=== PATIENT | female | born 1965 | race Caucasian/White ===

== ENCOUNTER 2016-08-03 09:59 | Day surgery (SDC) | payer BC ==
[2016-08-03] MEDS ORDERED: MIDAZOLAM HCL 2MG/2ML VIAL IV ONE (11:00)
[2016-08-03] MEDS ORDERED: PROPOFOL 10 MG/ML VIAL IV ONE (11:00)
[2016-08-03] MEDS ORDERED: LIDOCAINE 2% MDV (20MG/ML) 20ML VIAL IV ONE (11:00)
--- NOTE | 2016-08-09 10:20 | Operative Note ---
DATE OF SURGERY: 08/03/2016 SURGEON: Benito Rosales MD OPERATION: COLONOSCOPY. INDICATIONS: This is a 50-year-old female with average risk for colorectal cancer who presented for screening colonoscopy. POSTOPERATIVE DIAGNOSIS: Normal colon. ANESTHESIA: Sedation is per Anesthesia. Pulse oximetry was monitored throughout the procedure to maintain O2 saturation of 90% or greater. Supplemental oxygen was administered via nasal cannula. Cardiac and vital signs were monitored throughout the duration of the procedure, and they were stable. The procedure of colonoscopy and risks and alternatives of the procedure, including the risk of bleeding and perforation, among others, were explained to the patient who voiced understanding and agreed to have the procedure done. Physical examination was performed, and the patient was found stable for sedation. PROCEDURE: The patient was placed in the left lateral position. Sedation was initiated. A digital rectal exam was performed and showed some mild external hemorrhoids with no palpable rectal masses. An Olympus PCF-180AL colonoscope was then inserted into the rectum under direct visualization. It was advanced to the cecum without difficulty. The ileocecal valve and appendiceal orifice were identified and photographed. The colonic mucosa was carefully examined upon introduction of the colonoscope. There were no lesions noted. The colonoscope was then withdrawn while carefully examining the colonic mucosal surfaces. No lesions were noted. In the rectum, retroflexion was performed and grade 1 internal hemorrhoids were noted. The colonoscope was then withdrawn and the procedure was terminated. The patient tolerated the procedure well without any immediate complications. She remained with stable vital signs and was transferred to the recovery room. RECOMMENDATIONS: 1. The patient should be on a high-fiber diet. 2. The patient is to have a repeat colonoscopy for screening in 10 years. Thank you for allowing me to participate in the care of your patient. Benito Rosales MD CC: MANAV COSTELLO MD, [facility]
== END 2016-08-03 12:55 | disposition home or self-care (01) ==
LOC: HOP 09:59
PROVIDERS: ATTEND Internal Medicine Gastroenterology
DX: Z12.11 Encounter for screening for malignant neoplasm of colon (principal)
CPT/HCPCS: 81025

== ENCOUNTER 2019-02-11 14:47 | Observation (INO) | payer BC ==
[2019-02-11] MEDS ORDERED: DIAZEPAM 5 MG/1 ML TUBX IVP PRN ×2 (15:00→19:24)
[2019-02-11] MEDS ORDERED: 0.9 % SODIUM CHLORIDE 1,000 ML BAG IV ONE (15:01)
[2019-02-11] MEDS ORDERED: DIPHENHYDRAMINE HCL 50 MG/ML VIAL IVP ONE (15:01)
--- NOTE | 2019-02-11 15:05 | Emergency Department Record ---
History of Present Illness - General Chief Complaint: Dizziness Stated Complaint: DIZZINESS,VOMITING Time Seen by Provider: 02/11/19 14:50 Source: Patient Mode of Arrival: Ambulatory Limitations: No limitations - History of Present Illness Initial Comments: The patient is here due to the acute onset of dizziness and lightheadedness at home with nausea about an hour ago. She was just walking around doing housework when she developed the dizziness. She describes it as a feeling of motion along with lightheadness. There is no ORTIZ with the dizziness, or any confusion, neck pain, speech difficulties, or weakness. The patient has had a stroke in the past which manifested as an expressive aphasia but that did resolve. She was on Coumadin for some time but is off it now. The patient does have a hx of Vertigo but this is worse than in the past. The patient states she is feeling better at this time. Her dizziness is about 50% improved. MD Complaint: Dizziness, Lightheadedness Onset/Timin -: Hour(s) - Related Data Allergies Allergy/AdvReac Type Severity Reaction Status Date / Time codeine Allergy Intermediate VOMITING Verified 02/11/19 14:55 sulfamethoxazole Allergy Intermediate RASH Verified 02/11/19 14:55 [From Bactrim] trimethoprim [From Bactrim] Allergy Intermediate RASH Verified 02/11/19 14:55 Review of Systems Constitutional: Denies: Chills, Fever Eyes: Denies: Eye discharge ENT: Denies: Congestion Respiratory: Denies: Cough, Dyspnea Cardiovascular: Denies: Arrhythmia Endocrine: Denies: Fatigue Gastrointestinal: Reports: Nausea Genitourinary: Denies: Dysuria Musculoskeletal: Denies: Arthralgia Neurological: Denies: Confusion, Headache Past Medical History - SOCIAL HISTORY Smoking Status: Never smoker - RESPIRATORY Hx Respiratory Disorders: Yes Hx Sleep Apnea: Yes Hx of CPAP: No - CARDIOVASCULAR Hx Cardio Disorders: Yes Hx Hypertension: Yes Comment:: blood clot left carotid [id number] - NEURO Hx Neuro Disorders: Yes Hx CVA: Yes - GI Hx GI Disorders: No - Hx Genitourinary Disorders: No - ENDOCRINE Hx Endocrine Disorders: No - MUSCULOSKELETAL Hx Musculoskeletal Disorders: Yes Hx Arthritis: Yes - PSYCH Hx Psych Problems: Yes Hx Depression: Yes - HEMATOLOGY/ONCOLOGY Hx Hematology/Oncology Disorders: No Family Medical History *Cancer Comment: Paternal Great Grandmother-stomach cancer Hx Heart Disease: Father Physical Exam - General General Appearance: Alert, Oriented x3, Cooperative, No acute distress - Head Head exam: Atraumatic, Normocephalic, Normal inspection - Eye Eye exam: Normal appearance, PERRL, EOMI, Nystagmus (There is bilateral horizontal nystagmus increased to the L.) - ENT ENT exam: TM's normal bilaterally - Neck Neck exam: Normal inspection, Full ROM. negative: Lymphadenopathy, Meningismus, Tenderness - Respiratory Respiratory exam: Normal lung sounds bilaterally. negative: Respiratory distress - Cardiovascular Cardiovascular Exam: Regular rate, Normal rhythm, Normal heart sounds - GI/Abdominal GI/Abdominal exam: Soft, Normal bowel sounds. negative: Tenderness - Extremities Extremities exam: Normal inspection, Full ROM, Normal capillary refill. ne gative: Tenderness - Neurological Neurological exam: Alert, CN II-XII intact, Normal gait (but somewhat slow due to the dizziness.), Oriented X3, Reflexes normal, Other (Neg Drift and Rhomberg exams. Finger to nose exam normal.). negative: Abnormal gait, Altered, Motor sensory deficit - Psychiatric Psychiatric exam: negative: Anxious - Skin Skin exam: negative: Rash Course Vital Signs 02/11/19 14:54 Temperature 97.7 F Pulse Rate [ 91 H Pulse Ox Probe] Respiratory 20 Rate Blood Pressure 153/80 [Left Arm] Pulse Ox 96 - Reevaluation(s) Reevaluation #1: The patient is now back from CT. She did have worsening nausea with the movement to CT but after the Zofran is doing better. 02/11/19 15:37 Reevaluation #2: The patient is doing a lot better at this time. She is feeling 75% better with the dizziness resolving and denies any arm or leg numbness or weakness. Her speech is clear and she is having no visual changes or difficulty swallowing. 02/11/19 16:03 Reevaluation #3: The patient is doing better but is still having some significant Vertigo. She did try her own home Yung Maneuver to relieve the vertigo but it did not work. She is able to get up and walk but is still mildly unsteady due to the dizziness so I did recommend a short stay hospital admission which she agreed to. I then did discuss the case with Ofelia ([employer]CH[employer]IC[employer]) and she agrees with the plan for a short stay hospital admission and she accepts the patient for Dr. Juan. Ofelia also stated she would F/U on the Carotid doppler tests results. 02/11/19 16:44 Medical Decision Making - Data Complexity MDM Data: Labs Ordered and/or Reviewed, X-Ray Ordered and/or Reviewed, EKG Ordered and/or Reviewed - Lab Data Result diagrams: 02/11/19 15:10 02/11/19 15:10 - EKG Data -: EKG Interpreted by Me EKG: No Acute Changes, Normal EKG - Radiology Data Radiology results: Report reviewed (Head CT: Neg for acute changes, Old L fr ontal-parieatal CVA. ) Disposition Disposition: Admit Clinical Impression: Vertigo Disposition: Still a Patient at [facility] Decision to Admit: Admit from ER Decision to Admit Date: 02/11/19 Decision to Admit Time: 16:47 Accepting Physician: Yessica Time Discussed w/Accepting Physician: 16:47 Condition: (2) Stable Forms: Patient Portal Access Time of Disposition: 16:47 Quality - Quality Measures Quality Measures: N/A - Blood Pressure Screening View Details: Yes Does Patient Have Any of the Following: No Blood Pressure Classification: Pre-Hypertensive BP Reading Systolic Measurement: 153 Diastolic Measurement: 80 Screening for High Blood Pressure: < Pre-Hypertensive BP, F/U Documented > [G8950] Pre-Hypertensive Follow-up Interventions: Referral to alternative/primary care provider.
[2019-02-11] MEDS ORDERED: ONDANSETRON HCL IV 4 MG/2 ML VIAL IVP ONE ×2 (15:14→18:34)
[2019-02-11 15:32] LABS: BASO % 0.3 % (0-6); EOS % 1.8 % (0-6); GRAN % 61.8 % (47-80); HEMATOCRIT 38.1 % (35.0-47.0); HEMOGLOBIN 12.2 gm/dl (11.6-16.0); LYMPH % 30.4 % (16-45); MEAN CELL VOLUME 82.5 fl (81-97); MEAN CORPUSCULAR HEMOGLOBIN 26.4 pg (27-33); MEAN PLATELET VOLUME 9.3 fl (7.4-10.4); MONO % 5.7 % (0-9); PLATELET COUNT 407 K/uL (130-400); RED BLOOD COUNT 4.62 M/uL (3.80-5.40); RED CELL DISTRIBUTION WIDTH 13.9 % (11.5-14.5); WHITE BLOOD COUNT W/O DIFF 10.7 K/uL (4.2-12.2)
[2019-02-11 15:42] LABS: BLOOD UREA NITROGEN 19 mg/dL (6-20); CREATININE 0.5 mg/dL (0.5-0.9); EST GLOMERULAR FILTRATION RATE > 60 mL/min
[2019-02-11 15:43] LABS: TOTAL PROTEIN 7.2 g/dL (6.6-8.7)
[2019-02-11 15:45] LABS: GLUCOSE,RANDOM 107 mg/dL (74-109); PARTIAL THROMBOPLASTIN TIME 25.7 SECONDS (24.5-39.1)
[2019-02-11 15:47] LABS: ALT/SGPT 14 U/L (<33)
[2019-02-11 15:48] LABS: ALB/GLOB RATIO 1.6 (1.1-1.8); ALBUMIN 4.4 g/dL (4.0-5.0); ALKALINE PHOSPHATASE 79 U/L (35-104); AST/SGOT 14 U/L (10.0-35.0)
--- NOTE | 2019-02-11 18:40 | Emergency Department Record ---
History of Present Illness - General Chief Complaint: Dizziness Stated Complaint: DIZZINESS,VOMITING Time Seen by Provider: 02/11/19 14:50 Source: Patient Mode of Arrival: Ambulatory Limitations: No limitations - History of Present Illness Onset/Timin -: Hour(s) Timing: Unsure Description: Lightheadedness, Nausea, Off-balance, "Room spinning" History of Same: Yes (never this bad) History of Trauma: No Severity: Moderate - Zeferino Coma Scale Eye Response: (4) Open spontaneously Motor Response: (6) Obeys commands Verbal Response: (5) Oriented Zeferino Total: 15 - Related Data Allergies Allergy/AdvReac Type Severity Reaction Status Date / Time codeine Allergy Intermediate VOMITING Verified 02/11/19 14:55 sulfamethoxazole Allergy Intermediate RASH Verified 02/11/19 14:55 [From Bactrim] trimethoprim [From Bactrim] Allergy Intermediate RASH Verified 02/11/19 14:55 Travel Screening - Travel/Exposure Within Last 30 Days Have you traveled within the last 30 days?: No - Travel/Exposure Within Last Year Have you traveled outside the [place] in the last year?: No - Additonal Travel Details Have you been exposed to anyone with a communicable illness?: No - Travel Symptoms Symptom Screening: None Review of Systems Constitutional: Denies: Chills, Fever Eyes: Denies: Eye discharge ENT: Denies: Congestion Respiratory: Denies: Cough, Dyspnea Cardiovascular: Denies: Arrhythmia Endocrine: Denies: Fatigue Gastrointestinal: Reports: Nausea Genitourinary: Denies: Dysuria Musculoskeletal: Denies: Arthralgia Neurological: Denies: Confusion, Headache Past Medical History - SOCIAL HISTORY Smoking Status: Never smoker - RESPIRATORY Hx Respiratory Disorders: Yes Hx Sleep Apnea: Yes Hx of CPAP: No - CARDIOVASCULAR Hx Cardio Disorders: Yes Hx Hypertension: Yes Comment:: blood clot left carotid [id number] - NEURO Hx Neuro Disorders: Yes Hx CVA: Yes - GI Hx GI Disorders: No - Hx Genitourinary Disorders: No - ENDOCRINE Hx Endocrine Disorders: No - MUSCULOSKELETAL Hx Musculoskeletal Disorders: Yes Hx Arthritis: Yes - PSYCH Hx Psych Problems: Yes Hx Depression: Yes - HEMATOLOGY/ONCOLOGY Hx Hematology/Oncology Disorders: No Family Medical History *Cancer Comment: Paternal Great Grandmother-stomach cancer Hx Heart Disease: Father Physical Exam - General Limitations: No limitations Course Vital Signs 02/11/19 02/11/19 14:54 14:59 Temperature 97.7 F 97.7 F Pulse Rate [ 91 H Pulse Ox Probe] Respiratory 20 20 Rate Blood Pressure 153/80 [Left Arm] Pulse Ox 96 96 - Reevaluation(s) Reevaluation #1: I did again examine the patient prior to heading to the floor. She has been having her carotid doppler tests performed here in the ER which did delay her transfer to the floor. The patient was feeling quite well lying down and fairly asymptomatic but had to use the restroom so she did get up to go and her Vertigo worsened significantly. She now is feeling like she is on a boat with motion like waves. It clearly is worse with standing. I did re-examine the patient and she again was Neurologically intact. She did have horizontal nystagmus to the L mainly and did have normal strength and sensation to the arms and legs. Her spe ech was normal with no visual changes or facial drooping and her Finger to Nose exam again was neg. She also had a neg Pronator Drift exam. Due to the patient's hx of Vertigo I do feel she is having another episode and we will continue with her transfer to the floor. 02/11/19 18:36 Medical Decision Making - Lab Data Result diagrams: 02/11/19 15:10 02/11/19 15:10 Lab Results 02/11/19 02/11/19 02/11/19 Range/Units 15:10 15:10 15:10 WBC 10.7 (4.2-12.2) K/uL RBC 4.62 (3.80-5.40) M/uL Hgb 12.2 (11.6-16.0) gm/dl Hct 38.1 (35.0-47.0) % MCV 82.5 (81-97) fl MCH 26.4 L (27-33) pg MCHC 32.0 (32-36) g/dl RDW 13.9 (11.5-14.5) % Plt Count 407 H (130-400) K/uL MPV 9.3 (7.4-10.4) fl Gran % 61.8 (47-80) % Lymphocytes % 30.4 (16-45) % Monocytes % 5.7 (0-9) % Eosinophils % 1.8 (0-6) % Basophils % 0.3 (0-6) % Absolute Neutrophils 6.60 PT 10.0 (9.5-12.1) SECONDS INR 1.0 APTT 25.7 (24.5-39.1) SECONDS Sodium 141 (136-145) mmol/L Potassium 3.7 (3.4-4.5) mmol/L Chloride 103 (98-107) mmol/L Carbon Dioxide 26.0 (22-29) mmol/L Anion Gap 12.0 (7-16) BUN 19 (6-20) mg/dL Creatinine 0.5 (0.5-0.9) mg/dL Estimated GFR > 60 mL/min Random Glucose 107 (74-109) mg/dL Calcium 8.8 (8.6-10.0) mg/dL Total Bilirubin 0.30 (0.2-1.0) mg/dL AST 14 (10.0-35.0) U/L ALT 14 (<33) U/L Alkaline Phosphatase 79 (35-104) U/L Troponin T < 0.010 (0-0.010) ng/mL Total Protein 7.2 (6.6-8.7) g/dL Albumin 4.4 (4.0-5.0) g/dL Globulin 2.8 (1.4-4.8) gm/dL Albumin/Globulin Ratio 1.6 (1.1-1.8) Disposition Clinical Impression: Vertigo Disposition: Still a Patient at [facility] Condition: (2) Stable Forms: Patient Portal Access Quality - Quality Measures Quality Measures: N/A - Blood Pressure Screening View Details: Yes Does Patient Have Any of the Following: No Blood Pressure Classification: Pre-Hypertensive BP Reading Systolic Measurement: 153 Diastolic Measurement: 80 Screening for High Blood Pressure: < Pre-Hypertensive BP, F/U Documented > [G8950] Pre-Hypertensive Follow-up Interventions: Referral to alternative/primary care provider.
[2019-02-11] MEDS ORDERED: ONDANSETRON HCL IV 4 MG/2 ML VIAL IVP PRN (19:24)
[2019-02-11] MEDS ORDERED: MECLIZINE 25 MG TABLET PO PRN (19:24)
[2019-02-11] MEDS ORDERED: LISINOPRIL 10 MG TABLET PO SCH (19:24)
[2019-02-11] MEDS ORDERED: ACETAMINOPHEN 325 MG TAB PO PRN (19:24)
[2019-02-11] MEDS ORDERED: 0.9 % SODIUM CHLORIDE 1000ML 1,000 ML IV ONE (19:24)
[2019-02-11] MEDS ORDERED: ATORVASTATIN 20 MG TABLET PO SCH (19:24)
[2019-02-11] MEDS: TRAMADOL HCL 50 MG TABLET PO SCH (21:49)
[2019-02-12] MEDS: TRAMADOL HCL 50 MG TABLET PO SCH ×2 (02:25→08:01)
--- NOTE | 2019-02-12 07:19 | CT SCAN REPORT ---
EXAM: HEAD CT HISTORY: EXTREME VERTIGO WITH NAUSEA. TECHNIQUE: Head CT was performed within contrast. Comparison: MRI of the brain 08/04/11. FINDINGS: The ventricles and subarachnoid spaces are unremarkable. There is no mass or mass effect. There is no intra or extraaxial hemorrhage. There is an area of encephalomalacia in the left frontal parietal region which is new since the previous study, but appears chronic. This likely represents an old infarct. No CT evidence for large acute territorial infarct. No evidence for hyperdense MCA sign. The visualized sinuses and orbits are unremarkable. IMPRESSION: 1. NO MASS, HEMORRHAGE, OR ACUTE INTRACRANIAL PROCESS IDENTIFIED. 2. ENCEPHALOMALACIA IN THE LEFT FRONTAL PARIETAL REGION LIKELY DUE TO AN OLD INFARCT. JOB NUMBER: [id number] [facility]
--- NOTE | 2019-02-12 07:28 | US CAROTID DOPPLER REPORT ---
EXAM: BILATERAL CAROTID DOPPLER ULTRASOUND HISTORY: DIZZINESS. TECHNIQUE: Duplex Doppler ultrasound of the carotid arteries was performed. Comparison: None. FINDINGS: RIGHT CAROTID: There is mild atherosclerotic change in the right carotid bifurcation. The peak systolic flow velocity in the right common carotid artery is 64.8 cm/s. Peak systolic flow velocity in the right internal carotid artery is 86.4 cm/s. The peak systolic flow velocity in the right external carotid is 102.2 cm/s. The peak systolic flow velocity ratio is 1.3 which is unremarkable. LEFT CAROTID: There are mild atherosclerotic changes seen in the proximal left external carotid. The peak systolic flow velocity in the left common carotid artery is 52.9 cm/s. The peak systolic flow velocity in the left internal carotid is elevated at 128.2 cm/s. The peak systolic flow velocity in the left external carotid is 94.4 cm/s. The peak systolic flow velocity ratio is 2.4. Antegrade flow is seen in the vertebral arteries which appears unremarkable. IMPRESSION: 1. THE MEASUREMENTS ABOVE WOULD SUGGEST A 50-69% DIAMETER STENOSIS IN THE LEFT INTERNAL CAROTID ARTERY, HOWEVER, THIS VESSEL IS TORTUOUS WHICH MAY ARTIFACTUALLY INCREASE THE DEGREE OF STENOSIS. CT ANGIOGRAPHY IS SUGGESTED FOR FURTHER ASSESSMENT. 2. ATHEROSCLEROTIC CHANGES AT THE RIGHT CAROTID BIFURCATION, BUT NO EVIDENCE OF A SIGNIFICANT STENOSIS. 3. UNREMARKABLE VERTEBRALS. JOB NUMBER: [id number] [facility]
[2019-02-12] MEDS ORDERED: LISINOPRIL 10 MG TABLET PO SCH (10:00)
[2019-02-12] MEDS ORDERED: SERTRALINE HCL 50 MG TABLET PO SCH (10:00)
--- NOTE | 2019-02-12 10:49 | History & Physical ---
History of Present Illness - Date of Service Date of Service for History & Physical: 02/12/19 - History of Present Illness Admitting Diagnosis: 1. Acute Severe Vertigo History of Present Illness: 53 y/o female presented to ED for acute onset dizziness and lightheadedness with associated nausea about an hour prior to arrival. She was shampooing carpet at the time of onset. She does have previous hx vertigo that she describes as a feeling of motion sickness which usually is short-lived, only happens a couple times a year and is resolved using the Yung maneuver she self-taught herself. The current episode felt much different and much much more severe than previous so she decided to come to ED. 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 That was managed with coumadin and is no longer on long-term anticoagulation. She denies any chest pain, headache, dysphagia, difficulty speaking at the time. She has never seen ENT or PT for this, has been able to self manage at home with the occasional trip to urgent care for symptoms. While in ED labs were unremarkable. Head CT negative for acute process, did show evidence of old left frontal parietal infarct. EKG NSR. No acute neurological findings upon examination. She did have mild improvement after antiemetics, IVF, and meclizine. Admitted under observation of symptoms and carotid dopplers. 02/12/19- 1000- sitting in bed comfortably, reports she feels 90% better, no further nausea. Mild dizziness that is consistent with usual vertigo symptoms. Has tolerated all PO intake with no difficulty PCP: Dr Cisse Travel Screening - Travel/Exposure Within Last 30 Days Have you traveled within the last 30 days?: Yes Location Detail:: [place] - Travel/Exposure Within Last Year Have you traveled outside the [place] in the last year?: No - Additonal Travel Details Have you been exposed to anyone with a communicable illness?: No - Travel Symptoms Symptom Screening: Vomiting Review of Systems Constitutional: Denies: Chills, Fever Eyes: Denies: Eye discharge ENT: Denies: Congestion Respiratory: Denies: Cough, Dyspnea Cardiovascular: Denies: Arrhythmia Endocrine: Denies: Fatigue Gastrointestinal: Reports: Nausea Genitourinary: Denies: Dysuria Musculoskeletal: Denies: Arthralgia Neurological: Denies: Confusion, Headache Past Medical History - SOCIAL HISTORY Smoking Status: Never smoker Alcohol Use: None Drug Use: None - RESPIRATORY Hx Respiratory Disorders: Yes Hx Sleep Apnea: Yes Hx of CPAP: No - CARDIOVASCULAR Hx Cardio Disorders: Yes Hx Hypertension: Yes Comment:: blood clot left carotid [id number] - NEURO Hx Neuro Disorders: Yes Hx CVA: Yes - GI Hx GI Disorders: No - Hx Genitourinary Disorders: No - ENDOCRINE Hx Endocrine Disorders: No - MUSCULOSKELETAL Hx Musculoskeletal Disorders: Yes Hx Arthritis: Yes - PSYCH Hx Psych Problems: Yes Hx Depression: Yes - HEMATOLOGY/ONCOLOGY Hx Hematology/Oncology Disorders: No Family Medical History Any Significant Family History?: Yes *Cancer Comment: Paternal Great Grandmother-stomach cancer Hx Heart Disease: Father H&P Meds/Allergies - Allergies Allergies: Allergies Allergy/AdvReac Type Severity Reaction Status Date / Time codeine Allergy Intermediate VOMITING Verified 02/11/19 14:55 sulfamethoxazole Allergy Intermediate RASH Verified 02/11/19 14:55 [From Bactrim] trimethoprim [From Bactrim] Allergy Intermediate RASH Verified 02/11/19 14:55 - Home Medications Home Medications Medication Instructions Recorded Confirmed Last Taken Aspirin, Regular 325 02/12/19 02/11/19 08:00 - Active Medications Active Medications: Current Medications Acetaminophen (Tylenol 325mg) 650 mg PO Q6H PRN PRN Reason: PAIN - MILD(1-4)/FEVER Atorvastatin Calcium (Lipitor) 10 mg PO QD [facility] Last Admin: 02/11/19 21:49 Dose: 10 mg Documented by: Diazepam (Valium) 2 mg IVP NOW PRN PRN Reason: DIZZINESS Last Admin: 02/11/19 15:30 Dose: 2 mg Documented by: Diazepam (Valium) 2 mg IVP Q8H PRN PRN Reason: DIZZINESS Lisinopril (Zestril) 10 mg PO DAILY [facility] Last Admin: 02/12/19 09:28 Dose: 10 mg Documented by: Meclizine HCl (Antivert) 25 mg PO Q8H PRN PRN Reason: DIZZINESS Ondansetron HCl (Zofran) 4 mg IVP Q4H PRN PRN Reason: NAUSEA Sertraline HCl (Zoloft) 50 mg PO DAILY [facility] Last Admin: 02/12/19 09:28 Dose: Not Given Documented by: Tramadol HCl (Ultram) 50 mg PO Q6H [facility] Last Admin: 02/12/19 08:01 Dose: Not Given Documented by: Physical Exam - Vital Signs Vital Signs: Vital Signs - Last 24 Hrs Temp Pulse Pulse Pulse Resp BP BP 02/12/19 08:15 70 16 02/12/19 07:30 61 17 109/64 02/12/19 04:00 97.7 F 57 L 16 02/11/19 21:00 60 18 02/11/19 20:00 98.1 F 60 18 02/11/19 19:16 72 20 02/11/19 17:21 80 18 131/80 02/11/19 14:59 97.7 F 20 02/11/19 14:54 97.7 F 91 H 20 153/80 BP Pulse Ox 02/12/19 08:15 02/12/19 07:30 98 02/12/19 04:00 103/60 98 02/11/19 21:00 02/11/19 20:00 122/66 97 02/11/19 19:16 128/74 96 02/11/19 17:21 97 02/11/19 14:59 96 02/11/19 14:54 96 - General General Appearance: Alert, Oriented x3, Cooperative, No acute distress Limitations: No limitations - Head Head exam: Atraumatic, Normocephalic, Normal inspection - Eye Eye exam: Normal appearance, PERRL, EOMI, Nystagmus (There is bilateral horizontal nystagmus increased to the L.) - ENT ENT exam: TM's normal bilaterally - Neck Neck exam: Normal inspection, Full ROM. negative: Lymphadenopathy, Meningismus, Tenderness - Respiratory Respiratory exam: Normal lung sounds bilaterally. negative: Respiratory distress - Cardiovascular Cardiovascular Exam: Regular rate, Normal rhythm, Normal heart sounds - GI/Abdominal GI/Abdominal exam: Soft, Normal bowel sounds. negative: Tenderness - Extremities Extremities exam: Normal inspection, Full ROM, Normal capillary refill. negative: Tenderness - Neurological Neurological exam: Alert, CN II-XII intact, Normal gait (but somewhat slow due to the dizziness.), Oriented X3, Reflexes normal, Other (Neg Drift and Rhomberg exams. Finger to nose exam normal.). negative: Abnormal gait, Altered, Motor sensory deficit - Psychiatric Psychiatric exam: negative: Anxious - Skin Skin exam: negative: Rash Results - Labs Result Diagrams: 02/11/19 15:10 02/11/19 15:10 Labs Last 24 Hours: Laboratory Results - last 24 hr 02/11/19 02/11/19 02/11/19 15:10 15:10 15:10 WBC 10.7 RBC 4.62 Hgb 12.2 Hct 38.1 MCV 82.5 MCH 26.4 L MCHC 32.0 RDW 13.9 Plt Count 407 H MPV 9.3 Gran % 61.8 Lymphocytes % 30.4 Monocytes % 5.7 Eosinophils % 1.8 Basophils % 0.3 Absolute Neutrophils 6.60 PT 10.0 INR 1.0 APTT 25.7 Sodium 141 Potassium 3.7 Chloride 103 Carbon Dioxide 26.0 Anion Gap 12.0 BUN 19 Creatinine 0.5 Estimated GFR > 60 Random Glucose 107 Calcium 8.8 Total Bilirubin 0.30 AST 14 ALT 14 Alkaline Phosphatase 79 Troponin T < 0.010 Total Protein 7.2 Albumin 4.4 Globulin 2.8 Albumin/Globulin Ratio 1.6 - Imaging and Cardiology CT scan - head Status: Report reviewed (no acute changes) VTE H&P Assessment - Risk for VTE Risk for VTE: Yes Risk Level: Moderate Risk Assessment Date: 02/12/19 Risk Assessment Time: 10:49 VTE Orders Placed or Will Be Placed: Yes Plan - Detailed Diagnosis and Plan (1) Vertigo Current Visit: Yes Status: Acute Base Code: R42 - DIZZINESS AND GIDDINESS Comment: 02/12/19 - Head CT negative for acute process in ED - No acute abnormal neurological findings on exam - Valium 2mg Q8hr PRN, Meclizine 25,g Q8hr PRN, Zofran 4mg Q4hr PRN - IV hydration - Carotid dopplers - Plan: DC home after carotid dopplers and improvement of symptoms (2) Full code status Current Visit: Yes Status: Acute Base Code: Z78.9 - OTHER SPECIFIED HEALTH STATUS (3) DVT prophylaxis Current Visit: Yes Status: Acute Base Code: Z29.9 - ENCOUNTER FOR PROPHYLACTIC MEASURES, UNSPECIFIED Comment: 02/12/19 - Nursing encouraged frequent ambulation
--- NOTE | 2019-02-12 10:58 | Discharge Summary ---
Providers Discharge Summary Date: 02/12/19 Date of admission: 02/11/19 19:18 Attending physician: RENE MILLIGAN Primary care physician: Kimani Cisse Physical Exam - Vital Signs Vital Signs: Vital Signs - Last 24 Hrs Temp Pulse Pulse Pulse Resp BP BP 02/12/19 08:15 70 16 02/12/19 07:30 61 17 109/64 02/12/19 04:00 97.7 F 57 L 16 02/11/19 21:00 60 18 02/11/19 20:00 98.1 F 60 18 02/11/19 19:16 72 20 02/11/19 17:21 80 18 131/80 02/11/19 14:59 97.7 F 20 02/11/19 14:54 97.7 F 91 H 20 153/80 BP Pulse Ox 02/12/19 08:15 02/12/19 07:30 98 02/12/19 04:00 103/60 98 02/11/19 21:00 02/11/19 20:00 122/66 97 02/11/19 19:16 128/74 96 02/11/19 17:21 97 02/11/19 14:59 96 02/11/19 14:54 96 - General General Appearance: Alert, Oriented x3, Cooperative, No acute distress Limitations: No limitations - Head Head exam: Atraumatic, Normocephalic, Normal inspection - Eye Eye exam: Normal appearance, PERRL, EOMI, Nystagmus (There is bilateral horizontal nystagmus increased to the L.) - ENT ENT exam: TM's normal bilaterally - Neck Neck exam: Normal inspection, Full ROM. negative: Lymphadenopathy, Meningismus, Tenderness - Respiratory Respiratory exam: Normal lung sounds bilaterally. negative: Respiratory distress - Cardiovascular Cardiovascular Exam: Regular rate, Normal rhythm, Normal heart sounds - GI/Abdominal GI/Abdominal exam: Soft, Normal bowel sounds. negative: Tenderness - Extremities Extremities exam: Normal inspection, Full ROM, Normal capillary refill. negat latrell: Tenderness - Neurological Neurological exam: Alert, CN II-XII intact, Normal gait (but somewhat slow due to the dizziness.), Oriented X3, Reflexes normal, Other (Neg Drift and Rhomberg exams. Finger to nose exam normal.). negative: Abnormal gait, Altered, Motor sensory deficit - Psychiatric Psychiatric exam: negative: Anxious - Skin Skin exam: negative: Rash Hospitalization - Hospitalization Admission Diagnosis: 1. Acute Severe Vertigo - Problem List/Discharge Diagnosis (1) Vertigo Current Visit: Yes Status: Acute Base Code: R42 - DIZZINESS AND GIDDINESS Comment: 02/12/19 - Head CT negative for acute process in ED - No acute abnormal neurological findings on exam - Valium 2mg Q8hr PRN, Meclizine 25,g Q8hr PRN, Zofran 4mg Q4hr PRN - IV hydration - Carotid dopplers - Plan: DC home after carotid dopplers and improvement of symptoms (2) Full code status Current Visit: Yes Status: Acute Base Code: Z78.9 - OTHER SPECIFIED HEALTH STATUS (3) DVT prophylaxis Current Visit: Yes Status: Acute Base Code: Z29.9 - ENCOUNTER FOR PROPHYLACTIC MEASURES, UNSPECIFIED Comment: 02/12/19 - Nursing encouraged frequent ambulation - Hospitalization Course Disposition: Home, Self-Care Hospital Course: 53 y/o female presented to ED for acute onset dizziness and lightheadedness with associated nausea about an hour prior to arrival. She was shampooing carpet at the time of onset. She does have previous hx vertigo that she describes as a feeling of motion sickness which usually is short-lived, only happens a couple times a year and is resolved using the Yung maneuver she self-taught herself. The current episode felt much different and much much more severe than previous so she decided to come to ED. 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 That was managed with coumadin and is no longer on long-term anticoagulation. She denies any chest pain, headache, dysphagia, difficulty speaking at the time. She has never seen ENT or PT for this, has been able to self manage at home with the occasional trip to urgent care for symptoms. While in ED labs were unremarkable. Head CT negative for acute process, did show evidence of old left frontal parietal infarct. EKG NSR. No acute neurological findings upon examination. She did have mild improvement after antiemetics, IVF, and meclizine. Admitted under observation of symptoms and carotid dopplers. 02/12/19- 1000- sitting in bed comfortably, reports she feels 90% better, no further nausea. Mild dizziness that is consistent with usual vertigo symptoms. Has tolerated all PO intake with no difficulty. Has done well overnight. Hospital course unremarkable. Carotid doppler shows left internal carotid with 50-69% stenosis. She did have angiography of artery in 2012 when she had her stroke and was cleared by neurology approx 6 months following stroke. She has had no problems since then. Symptoms most suggesting vertigo- no abnormal neurologic findings, internal carotid artery stenosis only. Significant improvement in symptoms after medical management. Will DC home with [facility] PCP: Dr Cisse Procedures: Imaging and X-Rays 02/11/19 14:58 HEAD WO CONTRAST [CT] Stat 02/11/19 16:39 ARTERIAL DOPPLER CAROTID RAMANA [US] Stat Cardiology Procedures 02/11/19 14:58 Teacher Associate NOW EKG NOW Abnormal Labs: Abnormal Lab Results 02/11/19 Range/Units 15:10 MCH 26.4 L (27-33) pg Plt Count 407 H (130-400) K/uL Condition at Discharge: (2) Stable Discharge Medications - Discharge Medications Prescriptions: Meclizine HCl [Antivert] 25 mg PO Q8H PRN #30 tablet PRN Reason: Dizziness Ondansetron [Zofran Odt] 4 mg PO Q8H PRN #10 tab.rapdis PRN Reason: Nausea Home Medications: Ambulatory Orders Atorvastatin Calcium 10 mg PO QD tab 06/10/15 [Last Taken 02/11/19] Lisinopril 10 mg PO QD tab 06/10/15 [Last Taken 02/11/19] Sertraline HCl [Zoloft] 50 mg PO QD tab 06/10/15 [Last Taken 02/11/19] Tramadol HCl 50 mg PO Q6H tab 06/10/15 [Last Taken 02/11/19] Aspirin, Regular 325 02/12/19 [Last Taken 02/11/19 08:00] Meclizine HCl [Antivert] 25 mg PO Q8H PRN #30 tablet 02/12/19 [Last Taken Unknown] Ondansetron [Zofran Odt] 4 mg PO Q8H PRN #10 tab.rapdis 02/12/19 [Last Taken Unknown] Discharge Plan - Discharge Instructions Activity at Discharge: Increase Activity as Tolerated Diet at Discharge: Advance to Usual Diet Quality Measures - Quality Measures Quality Measures: Documentation of Current Medications in Medical Record, Screening for High Blood Pressure and F/U Documented - Current Medications Quality Measure: Measure #130: Documentation of Current Medications Documentation of Current Medications: <Current Medications Documented/Reviewed> [[id number]] - Blood Pressure Screening Quality Measure: Screening for High Blood Pressure and Follow-Up Documented Does Patient Have Any of the Following: No Blood Pressure Classification: Pre-Hypertensive BP Reading Systolic Measurement: 131 Diastolic Measurement: 80 Screening for High Blood Pressure: < Pre-Hypertensive BP, F/U Documented > [[id number]] Pre-Hypertensive Follow-up Interventions: Follow-up with rescreen every year. - Elder Abuse Suspicion Index EASI Reference Information: Riya SUBRAMANIAN, Madeline C, Manuel D, Chrissy Yu.Development and validation of a tool to assist physicians identification of elder abuse: The Elder Abuse Suspicion Index (EASI ). Journal of Elder Abuse and Neglect, 2008; 20 (3): 276-300.
== END 2019-02-12 11:28 | disposition home or self-care (01) ==
LOC: ER 14:47 → MEDSURG 19:18
PROVIDERS: ADMIT Internal Medicine; ATTEND Internal Medicine
DX: R42 Dizziness and giddiness (principal); R11.2 Nausea with vomiting, unspecified; I10 Essential (primary) hypertension; G47.33 Obstructive sleep apnea (adult) (pediatric); M19.90 Unspecified osteoarthritis, unspecified site; Z86.73 Personal history of transient ischemic attack (TIA), and cerebral infarction without residual deficits
CPT/HCPCS: 99285 ×2; 96376; 96374; 96375; 96361; 85025; 85730; 85610; 80053; 84484; 93880; 70450; 93005; 93010; G0378 ×2; J2405; J3490; 99220; J1200; J3360; J7030

== ENCOUNTER 2019-07-28 10:05 | Day surgery (SDC) | payer BC ==
[~2019-07-28 10:05] MED LIST: ACETAMINOPHEN 1,000 MG/100 ML BTL IVPB ONE
[2019-07-28] MEDS ORDERED: RINGERS SOLUTION,LACTATED 1,000 ML IV ONE ×2 (10:40→11:37)
[2019-07-28] MEDS ORDERED: BUPIVACAINE 0.25% W/EPI MPF 30ML VIAL IM ONE (11:32)
[2019-07-28] MEDS ORDERED: BETAMETHASONE 6 MG/1 ML 5ML VIAL IM ONE (11:32)
[2019-07-28] MEDS ORDERED: KETOROLAC 30 MG/ML VIAL IVP ONE (12:06)
== END 2019-07-28 12:26 | disposition home or self-care (01) ==
LOC: SUR 10:05
PROVIDERS: ATTEND Orthopaedic Surgery
DX: M75.01 Adhesive capsulitis of right shoulder (principal); E78.00 Pure hypercholesterolemia, unspecified; E55.9 Vitamin D deficiency, unspecified
CPT/HCPCS: 81025; J1885; 80061; 82306; 84450; 84460; J7120